=== PATIENT | male | born 2000 | race Caucasian/White ===

== ENCOUNTER 2023-07-05 13:22 | Emergency (ER) | payer BC, OTHER ==
--- NOTE | 2023-07-05 13:34 | ED Lower Extremity ---
General Chief Complaint: Lower Extremity Stated Complaint: FALL; RT HIP PAIN/INJ History of Present Illness Date Seen by Provider: Jul 05, 2023 Time Seen by Provider: 13:33 Initial Comments 23-year-old male presents with right hip pain. He reports that yesterday evening he was bucked off her horse and landed on his right hip. He has some tenderness with range of motion but is able to bear weight. He suffered no other injury Allergies and Home Medications Allergies Coded Allergies: No Known Drug Allergies (Unverified , 07/05/23) Patient Home Medication List Home Medication List Reviewed: Yes Naproxen (Naprosyn) 500 Mg Tablet, 500 MG PO BID Prescribed by: DARA BAUER on 07/05/23 1402 Review of Systems Constitutional: no symptoms reported EENTM: no symptoms reported Respiratory: no symptoms reported Cardiovascular: no symptoms reported Genitourinary: no symptoms reported Musculoskeletal: see HPI Skin: no symptoms reported Psychiatric/Neurological: No Symptoms Reported Physical Exam Vital Signs Vital Signs - First Documented 07/05/23 13:35 Temp 36.8 Pulse 103 Resp 16 B/P (MAP) 169/102 (124) Pulse Ox 97 O2 Delivery Room Air Capillary Refill : Height, Weight, BMI Height: '" Weight: lbs. oz. kg; BMI Method: General Appearance: WD/WN, no apparent distress Cardiovascular: normal peripheral pulses, regular rate, rhythm Respiratory: chest non-tender, lungs clear Hips: right hip pain, right hip soft tissue tenderness Legs: bilateral leg non-tender Knees: bilateral knee non-tender Ankles: bilateral ankle non-tender Neurologic/Psychiatric: alert, normal mood/affect, oriented x 3 Skin: normal color, warm/dry Progress/Results/Core Measures Results/Orders My Orders Orders - DARA BAUER DO Pelvis With Right Hip 2-3 View (07/05/23 13:34) Ketorolac Injection (Ketorolac Injection (07/05/23 13:58) Vital Signs/I&O 07/05/23 13:35 Temp 36.8 Pulse 103 Resp 16 B/P (MAP) 169/102 (124) Pulse Ox 97 O2 Delivery Room Air Progress Progress Note : Progress Note Patient's x-ray was ordered reviewed with initial interpretation negative by me with final interpretation per radiology report. Patient with contusion of his right hip. He was provided Toradol IM shot in the ER I will give him a prescription for Naprosyn. He is stable and discharged home. Departure Impression Primary Impression: Animal-rider injured by fall from or being thrown from horse in noncollision accident, initial encounter Additional Impression: Contusion of right hip and thigh Qualified Codes: S70.01XA - Contusion of right hip, initial encounter; S70.11XA - Contusion of right thigh, initial encounter Disposition: HOME, SELF-CARE Condition: Stable Departure-Patient Inst. Referrals: NO,LOCAL PHYSICIAN (PCP/Family) Primary Care Physician Patient Instructions: Hip Pointer (DC), Minor Contusion ED Add. Discharge Instructions: 4% topical lidocaine with menthol cream gel or patch use as directed on package. Voltaren/diclofenac cream or gel use as directed on package. Warm moist heat to affected area, gentle stretching. Follow-up with your primary care provider in 7 to 10 days if your symptoms or not improving for repeated x-ray. All discharge instructions reviewed with patient and/or family. Voiced understanding. Scripts Naproxen (Naprosyn) 500 Mg Tablet 500 MG PO BID, #30 TAB 0 Refills Prov: DARA BAUER DO 07/05/23 DARA BAUER DO Jul 05, 2023 13:34
[2023-07-05] MEDS ORDERED: KETOROLAC INJ 30 MG/ML VIAL IM STA (13:58)
[2023-07-05] MEDS ORDERED: NAPR-1071 PO (14:02)
--- NOTE | 2023-07-05 14:04 | Diagnostic Imaging Report ---
Indication: Thrown from horse with pelvic pain AP view pelvis is obtained with coned AP and frog-leg views of right hip. FINDINGS: No acute fracture or dislocation is identified. No abnormal lytic or sclerotic focus is seen, and there is no radiopaque foreign body. IMPRESSION: No acute abnormality. Dictated by: Dictated on workstation # [id number]
[2023-07-05 14:06] VITALS: BP 169/102
== END 2023-07-05 14:06 | disposition home or self-care (01) ==
LOC: ER FS 13:24
DX: S70.01XA Contusion of right hip, initial encounter (principal); S70.11XA Contusion of right thigh, initial encounter; Z28.310 Unvaccinated for COVID-19; V80.010A Animal-rider injured by fall from or being thrown from horse in noncollision accident, initial encounter; Y93.52 Activity, horseback riding
CPT/HCPCS: 73502